=== PATIENT | male | born 2000 | race African-American/Black ===

== ENCOUNTER 2019-06-01 18:09 | Emergency (ER) | payer SELFPAY ==
[~2019-06-01] VITALS: Ht 188 cm; Wt 66.0 kg
[2019-06-01 18:27] VITALS: BP 123/77
== END 2019-06-01 21:17 | disposition left against medical advice (07) ==
LOC: ER 18:09
DX: Z53.21 Procedure and treatment not carried out due to patient leaving prior to being seen by health care provider (principal)